=== PATIENT | male | born 1990 | race Hispanic/Latino ===

== ENCOUNTER 2020-07-02 11:13 | Emergency (ER) | payer SELFPAY ==
[2020-07-02] MEDS ORDERED: Bupivacaine 0.5% 10 ML VIAL ONE (11:26)
== END 2020-07-02 11:41 | disposition home or self-care (01) ==
LOC: ERS 11:13
DX: S02.5XXA Fracture of tooth (traumatic), initial encounter for closed fracture (principal); W22.8XXA Striking against or struck by other objects, initial encounter; J45.909 Unspecified asthma, uncomplicated; F17.210 Nicotine dependence, cigarettes, uncomplicated
CPT/HCPCS: 64400; J3490